=== PATIENT | female | born 1985 | race Caucasian/White ===

== ENCOUNTER → 2017-03-07 | Outpatient (CLI) | payer OTHER ==
[~2017-03-07] MED LIST: ACET50TA PO; IBUP-1114 PO; MOTR200T44 PO; PRENTAB7 PO
[2017-03-07 19:35] LABS: BASO % 0.3 % (0.0-1.0); EOS # 0.1 10^3/uL (0.0-0.50); IMMATURE GRANULOCYTE % 0.3 % (0-0); LYMPH # 1.7 10^3/uL (1.5-6.5); LYMPH % 21.6 % (24.0-44.0); MEAN CORPUSCULAR HEMOGLOBIN 30.2 pg (27.0-33.0); MEAN CORPUSCULAR HGB CONC 34.3 g/dl (32.0-36.5); MONO # 0.5 10^3/uL (0.0-0.8); MONO % 6.8 % (0.0-5.0); NEUTROPHILS # 5.4 10^3/uL (1.8-7.7); PLATELET COUNT, AUTOMATED 199 10^3/uL (150-450); RED CELL DISTRIBUTION WIDTH 12.4 % (11.5-14.5); WHITE BLOOD COUNT 7.7 10^3/uL (4.0-10.0)
[2017-03-09 11:08] LABS: HBsAg Prenatal NEGATIVE (NEGATIVE)
== END ==
LOC: M SMT 09:31
PROVIDERS: ATTEND Specialist
DX: Z34.81 Encounter for supervision of other normal pregnancy, first trimester (principal)

== ENCOUNTER → 2017-03-14 | Outpatient (REF) | payer OTHER | LOC: M LAB REF 13:12 | PROVIDERS: ATTEND Specialist | DX: Z34.81 Encounter for supervision of other normal pregnancy, first trimester (principal); Z3A.09 9 weeks gestation of pregnancy ==

== ENCOUNTER → 2017-04-26 | Outpatient (REF) | payer OTHER | LOC: M LAB REF 13:11 | PROVIDERS: ATTEND Advanced Practice Midwife | DX: Z34.82 Encounter for supervision of other normal pregnancy, second trimester (principal); Z36.89 Encounter for other specified antenatal screening ==

== ENCOUNTER → 2017-05-25 | Outpatient (CLI) | payer BC, OTHER ==
--- NOTE | 2017-05-25 10:54 | REP ---
Clinical: Anatomical evaluation. Comparison: None . Findings: Examination demonstrates a single live intrauterine in breech presentation. motion is identified by technologist. Placenta is noted anteriorly and grade zero without evidence for placenta previa or abruption. Amniotic fluid volume is normal. Cervix measures 5.1 cm in length and appears closed. No evidence for nuchal cord. Gestational age by LMP 19 weeks 5 days with MELY 10/14/2017 . Gestational age by current measurements 19 weeks 4 days with MELY 10/15/2017 . FHR equals 150 beats per minute. BPD 4.5 cm 19 weeks 4 days HC 17.2 cm 19 weeks 6 days AC 14.6 cm 19 weeks 6 days FL 3.1 cm 19 weeks 3 days HL 3.0 cm 19 weeks 5 days HC/AC ratio 1.18 Estimated weight 308 grams ( 47th percentile). Anatomical assessment demonstrates normal structures including cranium, choroid plexus, cavum, cerebellum/posterior fossa, facial features, lungs, ventricular outflow tracts, diaphragm, stomach, cord insertion/three-vessel cord, kidneys/bladder, and extremities. Impression: Single live intrauterine in breech presentation demonstrating appropriate interval growth. Limited evaluation of the heart and spine may warrant reevaluation and follow-up. Remainder of the anatomical assessment is complete and normal. Signed by Bro Orta MD 05/25/2017 10:46 A
== END ==
LOC: M RAD 09:43
PROVIDERS: ATTEND Specialist
DX: Z34.82 Encounter for supervision of other normal pregnancy, second trimester (principal); Z3A.19 19 weeks gestation of pregnancy

== ENCOUNTER → 2017-07-25 | Outpatient (REF) | payer BC, OTHER | LOC: M LAB REF 13:11 | DX: Z34.82 Encounter for supervision of other normal pregnancy, second trimester (principal) | CPT/HCPCS: 87086 ==

== ENCOUNTER → 2017-08-15 | Outpatient (CLI) | payer BC, OTHER | LOC: M RAD 07:48 | DX: Z34.82 Encounter for supervision of other normal pregnancy, second trimester (principal) | CPT/HCPCS: 76816 ==

== ENCOUNTER → 2017-08-17 | Outpatient (CLI) | payer BC, OTHER ==
[2017-08-17 09:56] LABS: BASO % 0.3 % (0.0-1.0); EOS # 0.1 10^3/uL (0.0-0.50); EOS % 0.8 % (0.0-3.0); HEMATOCRIT 38.6 % (36.0-47.0); HEMOGLOBIN 13.2 g/dl (12.0-16.0); LYMPH # 1.4 10^3/uL (1.5-4.5); LYMPH % 18.2 % (24.0-44.0); MEAN CORPUSCULAR HGB CONC 34.2 g/dl (32.0-36.5); MEAN CORPUSCULAR VOLUME 90.6 fl (80.0-96.0); MONO # 0.4 10^3/uL (0.0-0.8); MONO % 5.6 % (0.0-5.0); NEUTROPHILS # 5.8 10^3/uL (1.8-7.7); NEUTROPHILS % 74.1 % (36.0-66.0); PLATELET COUNT, AUTOMATED 174 10^3/uL (150-450); RED BLOOD COUNT 4.26 10^6/uL (4.00-5.40); RED CELL DISTRIBUTION WIDTH 13.6 % (11.5-14.5); WHITE BLOOD COUNT 7.9 10^3/uL (4.0-10.0)
[2017-08-17 10:06] LABS: GLUCOSE CHALLENGE TEST 1 HOUR 87 MG/DL (LESS THAN 140)
== END ==
LOC: M SMT 08:46
DX: Z34.82 Encounter for supervision of other normal pregnancy, second trimester (principal); Z36.89 Encounter for other specified antenatal screening
CPT/HCPCS: 82950

== ENCOUNTER → 2017-09-20 | Outpatient (REF) | payer BC, OTHER | LOC: M LAB REF 13:08 | DX: Z34.83 Encounter for supervision of other normal pregnancy, third trimester (principal) | CPT/HCPCS: 87081; 87186 ==

== ENCOUNTER 2017-10-11 17:30 | Inpatient (IN) | payer BC, OTHER ==
[2017-10-11] MEDS: LACTATED RINGER'S 1000 ML IV (18:21)
[2017-10-11] MEDS ORDERED: LR 1,000 ML IV (18:21)
[2017-10-11] MEDS: VANCOMYCIN HCL 1,000 MG, VIAL MATE ADAPTER 1 EACH in D5W 250 ML IV (18:55)
[2017-10-11 18:59] LABS: HEMATOCRIT 35.2 % (36.0-47.0); HEMOGLOBIN 12.5 g/dl (12.0-15.5); MEAN CORPUSCULAR HEMOGLOBIN 31.8 pg (27.0-33.0); MEAN CORPUSCULAR HGB CONC 35.5 g/dl (32.0-36.5); MEAN CORPUSCULAR VOLUME 89.6 fl (80.0-96.0); PLATELET COUNT, AUTOMATED 173 10^3/uL (150-450); RED BLOOD COUNT 3.93 10^6/uL (4.00-5.40); RED CELL DISTRIBUTION WIDTH 13.6 % (11.5-14.5); WHITE BLOOD COUNT 8.7 10^3/uL (4.0-10.0)
[2017-10-11] MEDS ORDERED: OXYTOCIN DRIP 30 UNITS in APPROPRIATE DILUENT 1 EA IV (19:00)
[2017-10-12] MEDS: OXYTOCIN DRIP 30 UNITS in APPROPRIATE DILUENT 1 EA IV (03:48)
[2017-10-12] MEDS: LR 1,000 ML IV ×3 (03:48→19:24)
[2017-10-12] MEDS ORDERED: MEASLES,MUMPS,RUBELLA VACCINE INJ (MMR-II) (90707) SC (04:00)
[2017-10-12] MEDS ORDERED: PROMETHAZINE 25 MG TAB PO (04:00)
[2017-10-12] MEDS ORDERED: DOCUSATE SODIUM 100 MG CAP PO (04:00)
[2017-10-12] MEDS ORDERED: IBUPROFEN 800 MG TAB PO (04:00)
[2017-10-12] MEDS ORDERED: ONDANSETRON 4MG/2ML VIAL (J2405) IV (04:00)
[2017-10-12] MEDS ORDERED: DIBUCAINE 1% OINTMENT 30GM TOP (04:00)
[2017-10-12] MEDS ORDERED: RHOGAM 300 MCG (1500 IU) INJ (J2790) IM (04:00)
[2017-10-12] MEDS: ACETAMINOPHEN 500 MG TAB PO (06:16)
[2017-10-12] MEDS: PRENATAL VITAMINS CHEWABLE TABLET PO (09:38)
[2017-10-13] MEDS: LR 1,000 ML IV (01:31)
[2017-10-13] MEDS: PRENATAL VITAMINS CHEWABLE TABLET PO (09:05)
== END 2017-10-13 13:15 | disposition home or self-care (01) | DRG 560 ==
LOC: M LDO 17:30 → M OBS 10-12 05:38 → M LDI 18:40
PROVIDERS: Obstetrics & Gynecology
PROC: 10E0XZZ Delivery of Products of Conception, External Approach (ICD-10-PCS; principal; 2017-10-12)
PROC: 10907ZC Drainage of Amniotic Fluid, Therapeutic from Products of Conception, Via Natural or Artificial Opening (ICD-10-PCS; 2017-10-12)
DX: O80 Encounter for full-term uncomplicated delivery (principal); Z37.0 Single live birth; Z3A.39 39 weeks gestation of pregnancy

== ENCOUNTER → 2018-06-21 | Outpatient (REF) | payer OTHER ==
[~2018-06-21] MED LIST changes: -ACET50TA PO; +COLA100C5 PO; +MAPA500T2 PO
[2018-06-23 14:42] LABS: HPV HYBRID CAPTURE II Negative (Negative)
== END ==
LOC: M LAB REF 18:40
PROVIDERS: ATTEND Specialist
DX: Z12.4 Encounter for screening for malignant neoplasm of cervix (principal)

== ENCOUNTER → 2018-07-06 | Outpatient (CLI) | payer OTHER ==
[2018-07-06 12:59] LABS: BASO % 0.6 % (0.0-1.0); EOS # 0.1 10^3/uL (0.0-0.50); EOS % 2.2 % (0.0-3.0); HEMATOCRIT 39.7 % (36.0-47.0); HEMOGLOBIN 13.7 g/dl (12.0-15.5); LYMPH # 1.6 10^3/uL (1.5-4.5); LYMPH % 32.1 % (24.0-44.0); MEAN CORPUSCULAR HEMOGLOBIN 30.3 pg (27.0-33.0); MEAN CORPUSCULAR HGB CONC 34.5 g/dl (32.0-36.5); MEAN CORPUSCULAR VOLUME 87.8 fl (80.0-96.0); MONO # 0.5 10^3/uL (0.0-0.8); NEUTROPHILS # 2.8 10^3/uL (1.8-7.7); NEUTROPHILS % 55.9 % (36.0-66.0); PLATELET COUNT, AUTOMATED 180 10^3/uL (150-450); RED BLOOD COUNT 4.52 10^6/uL (4.00-5.40)
[2018-07-08 00:07] LABS: EBV AB TO NUCLEAR ANTIGEN >600.0 U/mL (0.0-17.9); EBV VIRAL CAPSID AG IgM <36.0 U/mL (0.0-35.9)
== END ==
LOC: M LABDRWAD 09:26
PROVIDERS: ATTEND Physician Assistant
DX: R59.0 Localized enlarged lymph nodes (principal)

== ENCOUNTER → 2020-01-01 | Outpatient (REF) | payer OTHER ==
[2020-01-28 12:15] LABS: BASO % 0.2 % (0.0-1.0); EOS # 0.1 10^3/uL (0.0-0.5); EOS % 0.5 % (0.0-3.0); HEMATOCRIT 45.6 % (36.0-47.0); HEMOGLOBIN 14.8 g/dl (12.0-15.5); LYMPH # 2.3 10^3/uL (1.5-5.0); LYMPH % 21.7 % (24.0-44.0); MEAN CORPUSCULAR HEMOGLOBIN 30.3 pg (27.0-33.0); MEAN CORPUSCULAR HGB CONC 32.5 g/dl (32.0-36.5); MEAN CORPUSCULAR VOLUME 93.4 fl (80.0-96.0); MONO # 0.9 10^3/uL (0.0-0.8); MONO % 8.1 % (0.0-5.0); NEUTROPHILS # 7.3 10^3/uL (1.5-8.5); NEUTROPHILS % 68.9 % (36.0-66.0); PLATELET COUNT, AUTOMATED 214 10^3/uL (150-450); RED BLOOD COUNT 4.88 10^6/uL (4.00-5.40); WHITE BLOOD COUNT 10.5 10^3/uL (4.0-10.0)
[2020-01-28 12:38] LABS: ERYTHROCYTE SEDIMENTATION RATE 2 mm/hr (0-20)
[2020-02-13 13:11] LABS: ALT/SGPT 21 U/L (12-78); BILIRUBIN,TOTAL 0.6 MG/DL (0.2-1.0); BLOOD UREA NITROGEN 17 MG/DL (7-18); CARBON DIOXIDE LEVEL 28 MEQ/L (21-32); CHLORIDE LEVEL 110 MEQ/L (98-107); CREATININE FOR GFR 1.04 MG/DL (0.55-1.30); GLOMERULAR FILTRATION RATE > 60.0 (>60); GLUCOSE, FASTING 91 MG/DL (70-100); POTASSIUM SERUM 4.5 MEQ/L (3.5-5.1); RHEUMATOID FACTOR QUANT < 10.0 IU/ML (<15.0); SODIUM LEVEL 141 MEQ/L (136-145); THYROGLOBULIN ANTIBODY < 15.0 U/ML (<60.0); THYROXINE (T4) 7.8 UG/DL (4.5-12.0); TOTAL PROTEIN 6.9 GM/DL (6.4-8.2)
[2020-02-19 13:55] LABS: ANTINUCLEAR ANTIBODIES DIRECT See Separate Report; IGE RECEPTOR ABY 1 SEE SEPARATE REPORT; SSA SJOGRENS A SEE SEPARATE REPORT; SSB SJOGRENS B SEE SEPARATE REPORT
== END ==
LOC: M LABSMT 08:31
PROVIDERS: ATTEND Allergy & Immunology Allergy
DX: L50.1 Idiopathic urticaria (principal)

== ENCOUNTER → 2020-06-23 | Outpatient (REF) | payer BC ==
[2020-06-23 13:15] LABS: LUTEINIZING HORMONE 2.8 mIU/mL; PROGESTERONE 8.29 NG/ML; PROLACTIN 9.7 NG/ML
== END ==
LOC: M PLALAB 09:38 → M SFHCADAM 09:40
PROVIDERS: ATTEND Specialist
DX: N92.0 Excessive and frequent menstruation with regular cycle (principal)

== ENCOUNTER → 2020-08-12 | Outpatient (REF) | payer BC | LOC: M SFHCWAGY 10:03 | PROVIDERS: ATTEND Specialist | DX: Z12.4 Encounter for screening for malignant neoplasm of cervix (principal) ==

== ENCOUNTER 2022-01-22 16:15 | Emergency (ER) | payer OTHER ==
[~2022-01-22] VITALS: Ht 177.8 cm; Wt 86.8 kg
[2022-01-22] MEDS ORDERED: EPIN0.3I11 SQ (17:26)
[2022-01-22] MEDS ORDERED: BENA25CA4 PO (17:26)
[2022-01-22] MEDS ORDERED: predniSONE 20 MG TAB PO ONE (18:15)
[2022-01-22] MEDS ORDERED: PRED20TA PO (18:19)
[2022-01-22 18:30] VITALS: BP 122/72
== END 2022-01-22 18:37 | disposition home or self-care (01) ==
LOC: M ED 16:15
DX: T63.441A Toxic effect of venom of bees, accidental (unintentional), initial encounter (principal); Z88.0 Allergy status to penicillin; Z88.2 Allergy status to sulfonamides; Z91.030 Bee allergy status
CPT/HCPCS: 99283; J7512

== ENCOUNTER → 2022-11-02 | Outpatient (REF) | payer OTHER ==
[~2022-11-02] MED LIST changes: +BENA25CA4 PO; +EPIN0.3I11 SQ; +PRED20TA PO
== END ==
LOC: M LAB REF 12:07
PROVIDERS: ATTEND Nurse Practitioner Family
DX: J02.9 Acute pharyngitis, unspecified (principal)

== ENCOUNTER → 2023-12-16 | Outpatient (REF) | payer BC, OTHER ==
[~2023-12-16] MED LIST changes: +ACET-897 PO; +LEVO1TAB40 PO
== END ==
LOC: M LAB REF 18:20
PROVIDERS: ATTEND Physician Assistant
DX: R30.0 Dysuria (principal)

== ENCOUNTER 2023-12-17 17:55 | Emergency (ER) | payer BC, OTHER ==
[~2023-12-17] VITALS: Ht 177.8 cm; Wt 81.7 kg
[~2023-12-17 17:55] MED LIST changes: -ACET-897 PO; -LEVO1TAB40 PO
[2023-12-17] MEDS ORDERED: IBUP-1114 PO (18:30)
[2023-12-17] MEDS ORDERED: ACET-897 PO (18:30)
[2023-12-17 19:44] LABS: BASO % 0.4 % (0.0-1.0); EOS # 0.1 10^3/uL (0.0-0.5); EOS % 2.2 % (0.0-3.0); HEMATOCRIT 38.9 % (36.0-47.0); HEMOGLOBIN 13.3 g/dl (12.0-15.5); LYMPH # 0.9 10^3/uL (1.5-5.0); LYMPH % 19.8 % (24.0-44.0); MEAN CORPUSCULAR HEMOGLOBIN 30.9 pg (27.0-33.0); MEAN CORPUSCULAR HGB CONC 34.2 g/dl (32.0-36.5); MEAN CORPUSCULAR VOLUME 90.3 fl (80.0-96.0); MONO # 0.6 10^3/uL (0.0-0.8); MONO % 12.4 % (2.0-8.0); NEUTROPHILS # 2.9 10^3/uL (1.5-8.5); PLATELET COUNT, AUTOMATED 132 10^3/uL (150-450); RED BLOOD COUNT 4.31 10^6/uL (4.00-5.40); WHITE BLOOD COUNT 4.5 10^3/uL (4.0-10.0)
[2023-12-17 20:03] LABS: LIPASE 32 U/L (12-53)
[2023-12-17 20:05] LABS: ALKALINE PHOSPHATASE 63 U/L (46-116); ALT/SGPT 15 U/L (7.0-40); AST/SGOT < 8 U/L (<34); BILIRUBIN,TOTAL 0.8 MG/DL (0.3-1.2); BLOOD UREA NITROGEN 13 MG/DL (9-23); CALCIUM LEVEL 8.9 MG/DL (8.5-10.1); CARBON DIOXIDE LEVEL 27 MMOL/L (20-31); CHLORIDE LEVEL 109 MMOL/L (98-107); CREATININE FOR GFR 0.95 MG/DL (0.55-1.30); GLOMERULAR FILTRATION RATE > 60.0 (>60); GLUCOSE, FASTING 96 MG/DL (60-100); POTASSIUM SERUM 4.3 MMOL/L (3.5-5.1); SODIUM LEVEL 139 MMOL/L (136-145); TOTAL PROTEIN 6.8 G/DL (5.7-8.2)
[2023-12-17 20:06] LABS: HCG, SERUM QUALITATIVE NEGATIVE (NEGATIVE)
[2023-12-17 20:44] LABS: Trichomonas vaginalis (AMP) NOT DETECTED (NEGATIVE)
[2023-12-17] MEDS ORDERED: ISOVUE-370 76% 100ML VIAL As Ordered ONE (20:58)
[2023-12-17] MEDS: NS 1,000 ML IV ONE (21:02)
[2023-12-17 21:08] LABS: GC DNA AMPLIFICATION NEGATIVE (NEGATIVE)
[2023-12-17] MEDS ORDERED: LEVO1TAB40 PO (23:05)
[2023-12-17] MEDS: LevoFLOXacin 750 MG TABLET PO ONE (23:10)
[2023-12-17 23:11] VITALS: BP 117/72; TEMP 98.7; O2SAT 99
== END 2023-12-17 23:19 | disposition home or self-care (01) ==
LOC: M ED 17:55
DX: J18.9 Pneumonia, unspecified organism (principal); N39.0 Urinary tract infection, site not specified; N83.202 Unspecified ovarian cyst, left side; Z88.0 Allergy status to penicillin; Z88.1 Allergy status to other antibiotic agents; Z88.2 Allergy status to sulfonamides; Z91.030 Bee allergy status; Z79.1 Long term (current) use of non-steroidal anti-inflammatories (NSAID); Z79.899 Other long term (current) drug therapy
CPT/HCPCS: 71046; 74177; 76856; 80053; 81001; 83605; 83690; 84703; 85025; 87040; 87086; 87486; 87581; 87633; 87661; 87798; 87810; 87850; 93976; 96360; 96361; 99284; Q9967

== ENCOUNTER → 2024-02-01 | Outpatient (CLI) | payer BC ==
[~2024-02-01] MED LIST changes: +ACET-897 PO; +LEVO1TAB40 PO
[2024-02-01 11:47] LABS: BASO % 0.7 % (0.0-1.0); EOS # 0.1 10^3/uL (0.0-0.5); EOS % 1.3 % (0.0-3.0); HEMATOCRIT 40.4 % (36.0-47.0); HEMOGLOBIN 13.8 g/dl (12.0-15.5); LYMPH # 1.4 10^3/uL (1.5-5.0); LYMPH % 30.1 % (24.0-44.0); MEAN CORPUSCULAR HEMOGLOBIN 30.9 pg (27.0-33.0); MEAN CORPUSCULAR HGB CONC 34.2 g/dl (32.0-36.5); MEAN CORPUSCULAR VOLUME 90.6 fl (80.0-96.0); MONO # 0.3 10^3/uL (0.0-0.8); NEUTROPHILS # 2.8 10^3/uL (1.5-8.5); NEUTROPHILS % 60.7 % (36.0-66.0); PLATELET COUNT, AUTOMATED 174 10^3/uL (150-450); RED BLOOD COUNT 4.46 10^6/uL (4.00-5.40); WHITE BLOOD COUNT 4.6 10^3/uL (4.0-10.0)
[2024-02-01 12:03] LABS: ALBUMIN 3.9 G/DL (3.2-5.2); ALKALINE PHOSPHATASE 61 U/L (46-116); ALT/SGPT 18 U/L (7.0-40); AST/SGOT 9 U/L (<34); BILIRUBIN,TOTAL 1.1 MG/DL (0.3-1.2); BLOOD UREA NITROGEN 20 MG/DL (9-23); CALCIUM LEVEL 9.2 MG/DL (8.5-10.1); CARBON DIOXIDE LEVEL 25 MMOL/L (20-31); CHLORIDE LEVEL 111 MMOL/L (98-107); CREATININE FOR GFR 0.88 MG/DL (0.55-1.30); GLOMERULAR FILTRATION RATE > 60.0 (>60); GLUCOSE, FASTING 82 MG/DL (60-100); IMMUNOGLOBULIN A 221.9 MG/DL (40-350); IMMUNOGLOBULIN G 1041 MG/DL (650-1600); SODIUM LEVEL 140 MMOL/L (136-145); TOTAL PROTEIN 6.8 G/DL (5.7-8.2)
[2024-02-01 12:22] LABS: ERYTHROCYTE SEDIMENTATION RATE 1 mm/hr (0-20)
[2024-02-04 11:57] LABS: HPV APTIMA Not Detected (Not Detected)
[2024-02-04 13:52] LABS: ANTI TETANUS ANTIBODY 0.7 IU/mL (>=0.10)
[2024-02-04 19:27] LABS: IgG SUBCLASS 4(ONLY) 21.2 mg/dL (4.0-86.0)
[2024-02-08 17:07] LABS: STREP PNEUMO TYPE 12FX 0.4 ug/mL (>1.3); STREP PNEUMO TYPE 14X 1.3 ug/mL (>1.3); STREP PNEUMO TYPE 19AX 1.9 ug/mL (>1.3); STREP PNEUMO TYPE 19FX 0.4 ug/mL (>1.3); STREP PNEUMO TYPE 1X 0.2 ug/mL (>1.3); STREP PNEUMO TYPE 23FX 24.5 ug/mL (>1.3); STREP PNEUMO TYPE 3X 0.3 ug/mL (>1.3); STREP PNEUMO TYPE 4X 0.2 ug/mL (>1.3); STREP PNEUMO TYPE 6BX <0.1 ug/mL (>1.3); STREP PNEUMO TYPE 7FX 0.3 ug/mL (>1.3); STREP PNEUMO TYPE 8X 4.2 ug/mL (>1.3); STREP PNEUMO TYPE 9NX 0.2 ug/mL (>1.3); STREP PNEUMO TYPE 9VX 0.4 ug/mL (>1.3); STREP PNEUMO TYPE X 0.3 ug/mL (>1.3)
== END ==
LOC: M PLALAB 08:20
PROVIDERS: ATTEND Specialist
DX: D84.9 Immunodeficiency, unspecified (principal); Z12.4 Encounter for screening for malignant neoplasm of cervix
CPT/HCPCS: 36415; 80053; 82784; 82785; 82787; 85025; 85652; 86609; 86762; 86774; 87624; G0123